=== PATIENT | female | born 1960 | race African-American/Black ===

== ENCOUNTER 2018-05-15 15:36 | Emergency (ER) | payer MEDICAID ==
[~2018-05-15] VITALS: Ht 172.7 cm; Wt 102.0 kg
[2018-05-15 17:54] VITALS: BP 179/72
== END 2018-05-15 20:30 | disposition home or self-care (01) ==
LOC: ER 20:21
DX: S40.862A Insect bite (nonvenomous) of left upper arm, initial encounter (principal); W57.XXXA Bitten or stung by nonvenomous insect and other nonvenomous arthropods, initial encounter; Y93.89 Activity, other specified; Y92.89 Other specified places as the place of occurrence of the external cause; F17.210 Nicotine dependence, cigarettes, uncomplicated
CPT/HCPCS: 99282